=== PATIENT | male | born 1975 | race Caucasian/White ===

== ENCOUNTER 2016-03-22 08:43 | Emergency (ER) | payer OTHER ==
[~2016-03-22] VITALS: Ht 193 cm; Wt 212.6 kg
[~2016-03-22 08:43] MED LIST: BACT800T5 PO; CEPH-460 PO; COZA50TA PO; HYDR25TA5 PO
[2016-03-22 08:49] VITALS: BP 187/125; PULSE 94; RESP 18; TEMP 98.3; O2SAT 98
[2016-03-22] MEDS ORDERED: CYCLOBENZAPRINE HCL 10 MG TAB PO ONE (09:15)
[2016-03-22] MEDS ORDERED: KETOROLAC TROMETHAMINE 60 MG/2 ML (IM) VIAL IM ONE (09:15)
[2016-03-22 10:07] VITALS: BP 197/98; PULSE 79; RESP 18; O2SAT 96
[2016-03-22 10:14] VITALS: RESP 18
[2016-03-22] MEDS ORDERED: ACETAMINOPHEN/HYDROcodone 325 MG/5 MG TAB PO ONE (10:15)
[2016-03-22] MEDS ORDERED: CYCL1TAB29 PO (10:58)
[2016-03-22] MEDS ORDERED: IBUP400T20 PO (10:58)
[2016-03-22] MEDS ORDERED: HYDR-3533 PO (10:58)
--- NOTE | 2016-03-22 10:58 | PD ---
HPI Chief Complaint: Musculoskeletal Complaint Time Seen by Provider: 08:58 Travel History International Travel<30 days: No Contact w/Intl Traveler<30days: No Traveled to known affect area: No History of Present Illness HPI Patient is a 40-year-old male who comes in complaining of lower back pain that started yesterday. He says he has been off from work for the past 2 days and has just been resting, so he does not know what is caused his pain. He says he woke up with the pain. 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 He denies any direct injury to the back. He denies any urinary symptoms. He denies any numbness or tingling of his legs. PFSH Past Medical History Arthritis: No Asthma: No Autoimmune Disease: No Blood Disorders: No Anxiety: No Depression: No Cancer: No Cardiovascular Problems: Yes (HTN) High Cholesterol: Yes Chemotherapy: No Chest Pain: No Congestive Heart Failure: No COPD: No Cerebrovascular Accident: No Diabetes: No Diminished Hearing: No Diverticulitis: Yes Endocrine: No Gastrointestinal Disorders: Yes (DIVERTICULITIS) GERD: Yes Glaucoma: No Genitourinary: Yes (CONGENITAL UNDEVELOPED UNILAT. KIDNEY) Headaches: No Hepatitis: No Hiatal Hernia: Yes Hypertension: Yes Immune Disorder: No Kidney Stones: No Musculoskeletal: No Neurologic: No Psychiatric: No Reproductive: No Respiratory: Yes (SLEEP APNEA/ NO CPAP) Migraines: No Myocardial Infarction: No Radiation Therapy: No Renal Failure: No Seizures: No Sickle Cell Disease: No Sleep Apnea: No Thyroid Disease: No Past Surgical History Abdominal Surgery: Yes (BOWEL RESECT/ COLOSTOMY with reversal) AICD: No Appendectomy: No Arteriovenous Shunt: No Cardiac Surgery: No Cholecystectomy: No Ear Surgery: No Endocrine Surgery: No Eye Surgery: No Genitourinary Surgery: Yes (RIGHT NEPHRECTOMY (UNDEVELOPED)) Gynecologic Surgery: No Joint Replacement: No Oral Surgery: No Pacemaker: No Thoracic Surgery: No Other Surgery: Yes Social History Alcohol Use: Yes (SOCIAL-BEER) Tobacco Use: No (QUIT 2004) Substance Use: No Allergies-Medications (Allergen,Severity, Reaction): Coded Allergies: No Known Allergies (Verified , 03/22/16) Reported Meds & Prescriptions Reported Meds & Active Scripts Active Lortab (Hydrocodone-Acetaminophen) 5-325 Mg Tab 1 Tab PO Q6H PRN Flexeril (Cyclobenzaprine HCl) 10 Mg Tab 10 Mg PO TID Ibuprofen 400 Mg Tab 400 Mg PO Q6H PRN Reported Hydrochlorothiazide 25 Mg Tab 25 Mg PO DAILY Cozaar (Losartan Potassium) 50 Mg Tab 50 Mg PO BID Review of Systems Except as stated in HPI: all other systems reviewed are Neg General / Constitutional: No: Fever, Chills HENT: No: Headaches, Lightheadedness Cardiovascular: No: Chest Pain or Discomfort Respiratory: No: Shortness of Breath Gastrointestinal: No: Nausea, Vomiting Genitourinary: No: Dysuria, Flank Pain Musculoskeletal: Positive: Pain Skin: No Rash, No Change in Pigmentation Neurologic: No: Weakness, Dizziness, Sensory Disturbance Physical Exam Narrative GENERAL: Awake and alert in no acute distress. SKIN: Warm and dry. HEAD: Atraumatic. Normocephalic. EYES: Pupils equal and round. No scleral icterus. ENT: Mucous membranes pink and moist. NECK: Trachea midline. No JVD. CARDIOVASCULAR: Regular rate and rhythm. No murmur appreciated. RESPIRATORY: No accessory muscle use. Clear to auscultation. Breath sounds equal bilaterally. MUSCULOSKELETAL: No obvious deformities. No clubbing. No cyanosis. No edema. Tender to palpation of the lower thoracic spine, tender to the right paraspinal muscles. No CVA tenderness. NEUROLOGICAL: Awake and alert. No obvious cranial nerve deficits. Motor grossly within normal limits. Normal speech. PSYCHIATRIC: Appropriate mood and affect; insight and judgment normal. Data Data Last Documented VS Vital Signs Date Time Temp Pulse Resp B/P Pulse Ox O2 Delivery O2 Flow Rate FiO2 03/22/16 10:14 18 03/22/16 10:07 79 197/98 96 Room Air 03/22/16 08:49 98.3 Orders Ketorolac Inj (Toradol Inj) (03/22/16 09:15) Cyclobenzaprine (Flexeril) (03/22/16 09:15) Acetamin-Hydrocod 325-5 Mg (Prole 5-325 (03/22/16 10:15) MDM Medical Decision Making Medical Screen Exam Complete: Yes Emergency Medical Condition: Yes Medical Record Reviewed: Yes Differential Diagnosis Lower back strain versus muscle spasm versus fracture Narrative Course Patient is a 40-year-old male who comes in complaining of back pain. Exam shows tenderness to the lower thoracic spine. There are no neurologic symptoms. Patient given Toradol and Flexeril without relief of symptoms. Given a Lortab with some relief of his symptoms. Patient noted to have elevated blood pressure today. Advised follow-up with his doctor regarding this. He denies any chest pain or shortness of breath or headache at this time. Patient offered CT scan to further evaluate his pain, however he declines at this time. He says he would like to go home and try and rest and get in a more comfortable position. Patient given prescriptions for ibuprofen, Flexeril, Lortab. Advised not to combine the Flexeril and Lortab. Advised follow-up with a primary care doctor. Advised to return to the ED as needed for any worsening symptoms. Diagnosis Primary Impression: Back pain Qualified Code: M54.5 - Acute midline low back pain without sciatica Patient Instructions: Back Pain (ED), General Instructions Additional Instructions: Follow up with a primary care doctor. Return to the ED as needed for worsening symptoms. Try to stretch and move around to avoid stiffness. Take pain medicine as needed. Be careful as Flexeril and Lortabs may make you drowsy. Scripts Hydrocodone-Acetaminophen (Lortab)5-325 Mg Tab1 Tab PO Q6H PRN (PAIN) #12 TAB Ref 0 Prov:Yennifer Mijares MD 03/22/16 Cyclobenzaprine (Flexeril)10 Mg Tab10 Mg PO TID #15 TAB Ref 0 Prov:Yennifer Mijares MD 03/22/16 Ibuprofen 400 Mg [id number] Mg PO Q6H PRN (PAIN 1 TO 10 AND/OR AGITATION) #20 TAB Ref 0 Prov:Yennifer Mijares MD 03/22/16 Disposition: 01 DISCHARGE HOME Condition: Stable Yennifer Mijares MD Mar 22, 2016 10:58
== END 2016-03-22 11:10 | disposition home or self-care (01) ==
LOC: PHED 08:43
DX: M54.5 Low back pain (principal); I10 Essential (primary) hypertension; E78.00 Pure hypercholesterolemia, unspecified
CPT/HCPCS: 96372; 99283; J1885

== ENCOUNTER 2016-03-25 15:48 | Emergency (ER) | payer OTHER ==
[~2016-03-25] VITALS: Ht 193 cm; Wt 212.0 kg
[~2016-03-25 15:48] MED LIST changes: -BACT800T5 PO; -CEPH-460 PO; +CYCL1TAB29 PO; +HYDR-3533 PO; +IBUP400T20 PO
[2016-03-25 16:01] VITALS: BP 186/125; PULSE 101; RESP 20; TEMP 98.2; O2SAT 97
[2016-03-25] MEDS ORDERED: PROMETHAZINE INJ 25 MG/ML VIAL IM ONE (16:30)
[2016-03-25] MEDS ORDERED: HYDROmorphone HCL PF 2 MG/ML VIAL IM ONE (16:30)
--- NOTE | 2016-03-25 16:30 | PD ---
HPI Chief Complaint: Pain: Acute or Chronic Time Seen by Provider: 16:18 Travel History International Travel<30 days: No Contact w/Intl Traveler<30days: No Traveled to known affect area: No History of Present Illness HPI This 40-year-old male is complaining of low back pain. 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 Tuesday he had a fairly sudden onset of lower back pain. He was at rest that time. He does not recall any injury or any twisting. Pain is in the lower back and will be admitted to the right side. It does not radiate down the legs. There is no problem with bowel or bladder control. He was here 2 days ago and given a prescription for Percocet 5. He has not had any relief PFSH Past Medical History Arthritis: No Asthma: No Autoimmune Disease: No Blood Disorders: No Anxiety: No Depression: No Cancer: No Cardiovascular Problems: Yes (HTN) High Cholesterol: Yes Chemotherapy: No Chest Pain: No Congestive Heart Failure: No COPD: No Cerebrovascular Accident: No Diabetes: No Diminished Hearing: No Diverticulitis: Yes Endocrine: No Gastrointestinal Disorders: Yes (DIVERTICULITIS) GERD: Yes Glaucoma: No Genitourinary: Yes (CONGENITAL UNDEVELOPED UNILAT. KIDNEY) Headaches: No Hepatitis: No Hiatal Hernia: Yes Hypertension: Yes Immune Disorder: No Kidney Stones: No Musculoskeletal: No Neurologic: No Psychiatric: No Reproductive: No Respiratory: Yes (SLEEP APNEA/ NO CPAP) Migraines: No Myocardial Infarction: No Radiation Therapy: No Renal Failure: No Seizures: No Sickle Cell Disease: No Sleep Apnea: No Thyroid Disease: No Past Surgical History Abdominal Surgery: Yes (BOWEL RESECT/ COLOSTOMY with reversal) AICD: No Appendectomy: No Arteriovenous Shunt: No Cardiac Surgery: No Cholecystectomy: No Ear Surgery: No Endocrine Surgery: No Eye Surgery: No Genitourinary Surgery: Yes (RIGHT NEPHRECTOMY (UNDEVELOPED)) Gynecologic Surgery: No Joint Replacement: No Oral Surgery: No Pacemaker: No Thoracic Surgery: No Other Surgery: Yes Social History Alcohol Use: Yes (SOCIAL-BEER) Tobacco Use: No (QUIT 2004) Substance Use: No Allergies-Medications (Allergen,Severity, Reaction): Coded Allergies: No Known Allergies (Verified , 03/22/16) Reported Meds & Prescriptions Reported Meds & Active Scripts Active Lortab (Hydrocodone-Acetaminophen) 5-325 Mg Tab 1 Tab PO Q6H PRN Flexeril (Cyclobenzaprine HCl) 10 Mg Tab 10 Mg PO TID Ibuprofen 400 Mg Tab 400 Mg PO Q6H PRN Reported Hydrochlorothiazide 25 Mg Tab 25 Mg PO DAILY Cozaar (Losartan Potassium) 50 Mg Tab 50 Mg PO BID Review of Systems General / Constitutional: No: Fever, Chills HENT: No: Headaches, Vertigo Cardiovascular: No: Chest Pain or Discomfort, Palpitations Respiratory: No: Cough, Shortness of Breath Genitourinary: No: Urgency, Frequency Skin: No Rash Neurologic: No: Weakness Endocrine: No: Heat Intolerance, Cold Intolerance Hematologic/Lymphatic: No: Easy Bruising Physical Exam Narrative GENERAL: He is a very large man. He has a lot of trouble moving due to pain SKIN: Warm and dry. HEAD: Atraumatic. Normocephalic. EYES: Pupils equal and round. No scleral icterus. No injection or drainage. ENT: No nasal bleeding or discharge. Mucous membranes pink and moist. NECK: Trachea midline. No JVD. CARDIOVASCULAR: Regular rate and rhythm. No murmur appreciated. RESPIRATORY: No accessory muscle use. Clear to auscultation. Breath sounds equal bilaterally. GASTROINTESTINAL: Abdomen soft, non-tender, nondistended. Hepatic and splenic margins not palpable. MUSCULOSKELETAL: No obvious deformities. No clubbing. No cyanosis. No edema. NEUROLOGICAL: Awake and alert. No obvious cranial nerve deficits. Motor grossly within normal limits. Normal speech. He is tender in the lower back. The tenderness is not well localized. He has good strength in plantar and dorsiflexion of the foot. Sensation of the legs is intact PSYCHIATRIC: Appropriate mood and affect; insight and judgment normal. Data Data Last Documented VS Vital Signs Date Time Temp Pulse Resp B/P Pulse Ox O2 Delivery O2 Flow Rate FiO2 03/25/16 17:51 68 18 197/107 98 Room Air 03/25/16 16:[address] Lumb Spine W/O Contrast (03/25/16 16:27) Hydromorphone Pf Inj (Dilaudid Pf Inj) (03/25/16 16:30) Promethazine Inj (Phenergan Inj) (03/25/16 16:30) MDM Medical Decision Making Medical Screen Exam Complete: Yes Emergency Medical Condition: Yes Medical Record Reviewed: Yes Differential Diagnosis Differential includes herniated disc, nonspecific back pain, Narrative Course CT scan was obtained and shows some bulging of the disc no siria herniation. Bones are normal. This gentleman is quite uncomfortable with the pain. He has a prescription for Percocet 5. He is quite a large man and I will prescribe Percocet tens and I told him that he can even take 2 if necessary. Diagnosis Primary Impression: Back pain Qualified Code: M54.5 - Acute midline low back pain without sciatica Departure Forms: Tests/Procedures, Work Release Special Instructions: no work until cleared Scripts Oxycodone-Acetaminophen (Percocet)10-325 mg Tab1-2 Tab PO Q4H PRN (PAIN) #30 TAB Ref 0 Prov:Gomez Arredondo MD 03/25/16 Disposition: 01 DISCHARGE HOME Condition: Stable Gomez Arredondo MD Mar 25, 2016 16:30
[2016-03-25 17:51] VITALS: BP 197/107; PULSE 68; RESP 18; O2SAT 98
--- NOTE | 2016-03-25 18:09 | RADHPO ---
EXAM DATE/TIME: 03/25/2016 17:27 [facility] COMPARISON: No previous studies available for comparison. INDICATIONS : Lower back pain. RADIATION DOSE: 48.67 CTDIvol (mGy) MEDICAL HISTORY : Diverticulitis. Hypertension. SURGICAL HISTORY : Colon resection. Nephrectomy, right. ENCOUNTER: Initial ACUITY: 4 - 6 days PAIN SCALE: 8/10 LOCATION: Right lower back. TECHNIQUE: Volumetric scanning of the lumbar spine was performed. Multiplanar reconstructions in the sagittal, coronal and oblique axial planes were performed. Using automated exposure control and adjustment of the mA and/or kV according to patient size, radiation dose was kept as low as reasonably achievable t o obtain optimal diagnostic quality images. FINDINGS: Study is degraded by streak artifact from the patient's large body habitus. VERTEBRAE: Normal vertebral body height. ALIGNMENT: No evidence of subluxation. T12-L1: The thecal sac has a normal diameter. No evidence of disc bulge or protrusion. The neural foramina are patent bilaterally. L1-L2: The thecal sac has a normal diameter. No evidence of disc bulge or protrusion. The neural foramina are patent bilaterally. L2-L3: The thecal sac has a normal diameter. No evidence of disc bulge or protrusion. The neural foramina are patent bilaterally. L3-L4: There is an annular disc bulge with mild flattening the anterior thecal sac and no focal protrusion. The neural foramina are patent. There are mild degenerative changes involving the facets. L4-L5: The thecal sac has a normal diameter. No evidence of disc bulge or protrusion. The neural foramina are patent bilaterally. L5-S1: The thecal sac has a normal diameter. No evidence of disc bulge or protrusion. The neural foramina are patent bilaterally. CONCLUSION: 1. Suboptimal exam with streak artifact. 2. Annular disc bulge at the L3-4 level with mild mass effect on the sac. No definite focal protrusio n visualized. 3. Degenerative changes involving the lower facet joints. Tristin Rodriguez MD on March 25, 2016 at 18:03 Board Certified Radiologist. This report was verified electronically.
[2016-03-25] MEDS ORDERED: PERC10TA27 PO (18:47)
[2016-03-25] MEDS ORDERED: KETO10 PO ×2 (19:14→19:15)
[2016-03-25 19:21] VITALS: BP 188/99
== END 2016-03-25 19:26 | disposition home or self-care (01) ==
LOC: PHED 15:48
DX: M54.5 Low back pain (principal); I10 Essential (primary) hypertension; K21.9 Gastro-esophageal reflux disease without esophagitis; E78.00 Pure hypercholesterolemia, unspecified
CPT/HCPCS: 72131; 96372; 99283; J1170; J2550

== ENCOUNTER 2017-07-22 01:27 | Inpatient (IN) | END 2017-07-24 15:34 | disposition home or self-care (01) | DRG 687 | DX: C64.2 Malignant neoplasm of left kidney, except renal pelvis (principal); N17.9 Acute kidney failure, unspecified; Z68.43 Body mass index [BMI] 50.0-59.9, adult; E66.01 Morbid (severe) obesity due to excess calories; I10 Essential (primary) hypertension; R31.29 Other microscopic hematuria; E78.00 Pure hypercholesterolemia, unspecified; K21.9 Gastro-esophageal reflux disease without esophagitis; G47.33 Obstructive sleep apnea (adult) (pediatric); R51 Headache; F41.9 Anxiety disorder, unspecified; R07.9 Chest pain, unspecified; Z80.8 Family history of malignant neoplasm of other organs or systems; Z87.718 Personal history of other specified (corrected) congenital malformations of genitourinary system; Z87.891 Personal history of nicotine dependence; Z90.5 Acquired absence of kidney ==